=== PATIENT | female | born 1975 | race Caucasian/White ===

== ENCOUNTER 2016-09-30 08:51 | Emergency (ER) | payer OTHER, MEDICAID ==
[2016-09-30] MEDS ORDERED: HYDROcod/ACETAM 5/325 MG TABLET PO STA (10:12)
[2016-09-30] MEDS ORDERED: HYDROcod/ACETAM 5/325 MG TABLET ONE (10:14)
== END 2016-09-30 10:28 | disposition home or self-care (01) ==
DX: S40.011A Contusion of right shoulder, initial encounter (principal); V47.5XXA Car driver injured in collision with fixed or stationary object in traffic accident, initial encounter; Y92.488 Other paved roadways as the place of occurrence of the external cause; F17.200 Nicotine dependence, unspecified, uncomplicated
CPT/HCPCS: 73000; 73030; 99283; A9270

== ENCOUNTER 2018-06-23 16:48 | Outpatient (CLI) | payer MEDICAID ==
--- NOTE | 2018-06-23 23:58 | Ultrasound Report ---
Reason: HERNIA OF ANTERIOR ABDOMINAL WALL Procedure Date: 06/23/2018 Accession Number: [id number] / [id number] Procedure: US - Abdomen Limited CPT Code: FULL RESULT: EXAM: ABDOMEN LIMITED ULTRASOUND EXAM DATE: 06/23/2018 05:18 PM. CLINICAL HISTORY: HERNIA OF ANTERIOR ABDOMINAL WALL. COMPARISON: None. TECHNIQUE: Real-time sonographic imaging of the anterior abdominal wall and vascular structures, including color-flow, was performed by the optical instrument inspector. Multiple passenger relations representative static images were saved for review. FINDINGS: Hernia: None identified with or without Valsalva. Soft Tissues: Normal. No fluid collections or adenopathy. Other: None. IMPRESSION: Normal. No inguinal hernia evident. [facility]
== END 2018-06-23 16:49 | disposition home or self-care (01) ==
LOC: DI 16:48
PROVIDERS: ATTEND Nurse Practitioner Family
DX: K43.9 Ventral hernia without obstruction or gangrene (principal)
CPT/HCPCS: 76705